=== PATIENT | female | born 1990 | race Asian ===

== ENCOUNTER 2021-08-02 10:24 | Inpatient (IN) | payer BC ==
[~2021-08-02] VITALS: Ht 165.1 cm; Wt 128.8 kg
[2021-08-02] VITALS (11 sets, daily range): BP systolic 97–131; BP diastolic 50–77; TEMP 97.8–98.2; Ht 165.1 cm; Wt 128.8 kg
[~2021-08-02 10:24] MED LIST: INSUINJP SC; METFORMIN500 MG/5 M PO
[2021-08-02 12:06] LABS: PLATELET COUNT 232 K/uL (152-353)
[2021-08-02 12:32] LABS: POTASSIUM 4.2 mmol/L (3.6-5.2)
[2021-08-02] MEDS ORDERED: DOXYCYCL HYC100 M1 PO (16:34)
[2021-08-02] MEDS ORDERED: FLUC200T PO (16:35)
[2021-08-02 17:59] LABS: POTASSIUM 3.7 mmol/L (3.6-5.2)
[2021-08-02 23:35] LABS: POTASSIUM 3.5 mmol/L (3.6-5.2)
[2021-08-03] VITALS (9 sets, daily range): BP systolic 89–128; BP diastolic 47–75; TEMP 97.6–98.4
[2021-08-03 05:31] LABS: POTASSIUM 3.9 mmol/L (3.6-5.2)
[2021-08-04 04:09] VITALS: BP 93/47; TEMP 97.7
[2021-08-04 05:43] LABS: PLATELET COUNT 190 K/uL (152-353)
[2021-08-04 06:25] LABS: POTASSIUM 3.8 mmol/L (3.6-5.2)
[2021-08-04 08:00] VITALS: BP 112/64; TEMP 97.8
== END 2021-08-04 14:15 | disposition home or self-care (01) | DRG 638 ==
LOC: ICU 10:24 → MED/SURG 08-03 08:05
PROVIDERS: ADMIT Family Medicine; ATTEND Family Medicine
DX: E11.10 Type 2 diabetes mellitus with ketoacidosis without coma (principal); I48.92 Unspecified atrial flutter; E66.01 Morbid (severe) obesity due to excess calories
CPT/HCPCS: 36415; 36600; 80048; 80053; 81000; 81002; 82550; 82805; 83605; 83735; 84100; 84484; 85027; 87040; 87635; 93005; J1650; J1815; J3475; J3480; U0003